=== PATIENT | female | born 1965 | race Two or more races ===

== ENCOUNTER → 2024-09-08 | Outpatient (CLI) | payer MEDICAID, SELFPAY ==
--- NOTE | 2024-09-08 14:00 | ECHO_ITS ---
Transthoracic Echo Report Ht (in): 61 Wt (lb): 124 Exam Location: Echo Lab Status: Preadmit [employer] Mender: JOVANY Polo^^^^ Indications: Procedure Performed: BP: 124 / 74 HR: 67 Rhythm: Sinus Technical Quality: Fair MEASUREMENTS (Male / Female) Normal Values 2D ECHO LV Diastolic Diameter PLAX 4.0 cm 4.2 - 5.9 / 3.9 - 5.3 cm LV Systolic Diameter PLAX 2.6 cm IVS Diastolic Thickness 1.0 cm 0.6 - 1.0 / 0.6 - 0.9 cm LVPW Diastolic Thickness 0.6 cm 0.6 - 1.0 / 0.6 - 0.9 cm LV Relative Wall Thickness 0.4 LVOT Diameter 1.4 cm Aortic Root Diameter 2.3 cm LA Systolic Diameter LX 2.8 cm 3.0 - 4.0 / 2.7 - 3.8 cm LA Volume Index 24.4 cm?/m? 16 - 28 cm?/m? Ascending Aorta Diameter 2.3 cm DOPPLER AV Peak Velocity 180.0 cm/s AV Peak Gradient 13.0 mmHg AV Mean Gradient 6.5 mmHg AV Velocity Time Integral 39.6 cm LVOT Peak Velocity 137.0 cm/s LVOT Peak Gradient 7.5 mmHg LVOT Velocity Time Integral 35.4 cm LVOT Cardiac Index 2333.9 cm?/min?m? AV Area Cont Eq vti 1.4 cm? AV Area Cont Eq pk 1.2 cm? MV Area PHT 3.5 cm? Mitral E Point Velocity 70.4 cm/s Mitral A Point Velocity 94.2 cm/s Mitral E to A Ratio 0.7 LV E' Lateral Velocity 10.4 cm/s Mitral E to LV E' Lateral Ratio 6.8 LV E' Septal Velocity 10.4 cm/s Mitral E to LV E' Septal Ratio 6.8 TR Peak Velocity 194.5 cm/s TR Peak Gradient 15.1 mmHg PV Peak Velocity 110.0 cm/s PV Peak Gradient 4.8 mmHg RVOT Peak Velocity 56.9 cm/s FINDINGS Left Ventricle Normal left ventricular size, wall thickness, systolic function with no obvious regional wall motion abnormalities. There is grade I diastolic dysfunction of the left ventricle (impaired relaxation pattern). The left ventricular ejection fraction is normal, estimated at 60-65%. Right Ventricle The right ventricle is normal in size and systolic function. The estimated right ventricular systolic pressure, 17 mmHg. Left Atrium The left atrium is normal by two-dimensional, color flow and Doppler imaging with no structural abnormalities, no thrombus formation present. Right Atrium The right atrium is normal by two-dimensional imaging, color flow and Doppler imaging with no structural abnormalities, no thrombus formation present. Atrial Septum The interatrial septum appears normal with no evidence of a shunt. Aorta The aorta is normal by two-dimensional, color flow and Doppler interrogation. Mitral Valve Mild mitral annular calcification. Mild mitral regurgitation. Aortic Valve Aortic valve sclerosis. Tricuspid Valve There is mild tricuspid valve regurgitation. Pulmonic Valve The pulmonic valve is not well visualized. There is no significant pulmonic valve regurgitation. Vessels The pulmonary artery appears normal. The inferior vena cava pulmonary and hepatic veins appear normal. Pericardium The pericardium is normal by two-dimensional imaging. There is no significant pericardial effusion. CONCLUSIONS indication: SOB LV appears normal with EF 60-65%. Diastolic Dysfunction I. RV appears normal RVSP 17 mmHg. Mild MR & MAC AOV sclerosis Mild TR Teagan Vicente (Electronically Signed) Final Date: 08 September 2024 16:27
== END | disposition home or self-care (01) ==
PROVIDERS: PCP Physician Assistant; Referring Provider Physician Assistant Medical; Visit Provider Physician Assistant Medical
DX: I08.1 Rheumatic disorders of both mitral and tricuspid valves (principal); I35.8 Other nonrheumatic aortic valve disorders; I50.30 Unspecified diastolic (congestive) heart failure
CPT/HCPCS: 93306